=== PATIENT | male | born 1930 | race Caucasian/White ===

== ENCOUNTER 2017-10-21 19:25 | Inpatient (IN) | payer MEDICARE, BC ==
[~2017-10-21] VITALS: Ht 182.9 cm; Wt 100.0 kg
[2017-10-21] MEDS ORDERED: normal saline 1000ML IV soln IVB ONE ×3 (19:50→20:35)
[2017-10-21 20:37] LABS: BASOPHILS % (AUTO) 0.2 % (0-1); EOSINOPHILS # (AUTO) 0.3 X10'3 (0-0.9); EOSINOPHILS % (AUTO) 3.2 % (0-6); HEMATOCRIT 38.8 % (42.0-52.0); LYMPHOCYTES # (AUTO) 0.9 X10'3 (1.1-4.8); LYMPHOCYTES % (AUTO) 10.3 % (21-51); MEAN CORPUSCULAR HEMOGLOBIN 31.9 PG (27.0-31.0); MEAN CORPUSCULAR HGB CONC 33.5 % (33.0-36.5); MEAN CORPUSCULAR VOLUME 95.1 FL (78-98); MEAN PLATELET VOLUME 8.3 FL (7.4-10.4); MONOCYTES # (AUTO) 0.6 X10'3 (0-0.9); NEUTROPHILS # (AUTO) 7.2 X10'3 (1.8-7.7); NEUTROPHILS % (AUTO) 79.3 % (42-75); PLATELET COUNT 213 X10'3 (140-440); RED BLOOD COUNT 4.08 X10'6 (4.70-6.10); WHITE BLOOD COUNT 9.1 X10'3 (4.5-11.0)
[2017-10-21 20:52] LABS: INR 1.3 INR; PARTIAL THROMBOPLASTIN TIME 35 SECONDS (22-32); PROTHROMBIN TIME 13.1 SECONDS (9.0-12.0)
[2017-10-21 20:55] LABS: ALANINE AMINOTRANSFERASE 32 U/L (12-78); ALBUMIN 3.2 G/DL (3.4-5.0); ALBUMIN/GLOBULIN RATIO 0.8 (1.1-1.5); ALKALINE PHOSPHATASE 125 IU/L (46-116); ANION GAP 13 (8-16); ASPARTATE AMINO TRANSFERASE 26 U/L (10-37); BILIRUBIN,TOTAL 0.6 MG/DL (0.1-1.0); BLOOD UREA NITROGEN 29 MG/DL (7-18); BUN/CREATININE RATIO 13.8 (5.4-32.0); CALCIUM 8.6 MG/DL (8.5-10.1); CHLORIDE 104 MMOL/L (99-107); GLUCOSE 177 MG/DL (70-104); POTASSIUM 4.4 MMOL/L (3.5-5.1); SODIUM 142 MMOL/L (135-145); TOTAL CARBON DIOXIDE 24.8 MMOL/L (24-32); TOTAL PROTEIN 7.2 G/DL (6.4-8.2); eGFR 30 ML/MIN
[2017-10-21 21:05] LABS: MAGNESIUM 2.2 MG/DL (1.5-2.4)
[2017-10-21 21:07] LABS: CLARITY,URINE SLIGHTLY CLOUDY (Clear); COLOR,URINE STRAW (Yellow); GLUCOSE, URINE NEGATIVE (Neg); KETONES,URINE NEGATIVE (Neg); LEUKOCYTE ESTERASE ,URINE LARGE (Neg); NITRITES, URINE NEGATIVE (Neg); OCCULT BLOOD,URINE SMALL (Neg); PH,URINE 6.5 (4.8-8.0); PROTEIN,URINE NEGATIVE (Neg); UROBILINOGEN,URINE 0.2 E.U/dL (0.2-1.0)
[2017-10-21 21:08] LABS: UA COLLECTION TYPE CLN CATCH MIDSTREAM
[2017-10-21 21:16] LABS: WBC,URINE TNTC /HPF (0-4)
[2017-10-21 21:17] LABS: BACTERIA,URINE 1+ /HPF (Neg); MUCUS STRANDS NONE SEEN /LPF (Neg); SQUAMOUS EPITHELIAL CELL,UR NONE SEEN /LPF (FEW)
[2017-10-21] MEDS ORDERED: CefTRIAXone 2gm/D5W 50ml ADVTG 50 ML IV ONE (21:55)
[2017-10-21] MEDS ORDERED: METO-539 PO (22:22)
[2017-10-21] MEDS ORDERED: FURO-149 PO (22:22)
[2017-10-21] MEDS ORDERED: LISI-600 PO (22:22)
[2017-10-21] MEDS ORDERED: DIGO125T4 PO (22:22)
[2017-10-21] MEDS ORDERED: DABI75CA3 PO (22:22)
[2017-10-21] MEDS ORDERED: PRAV40TA3 PO (22:23)
[2017-10-21] MEDS ORDERED: magnesium hydroxide 30ml (MOM) UD suspension PO PRN (23:10)
[2017-10-21] MEDS ORDERED: ondansetron/PF 4mg/2ml inj IV PRN (23:10)
[2017-10-21] MEDS ORDERED: mag hydrox/Alum hydrox/simeth 30ml oral suspension PO PRN (23:10)
[2017-10-22 02:10] VITALS: BP 153/71
[2017-10-22] MEDS: amLODIPine 5mg tablet PO SCH ×2 (03:30→08:38)
[2017-10-22 07:47] VITALS: BP 142/69
[2017-10-22] MEDS: digoxin 125mcg (0.125mg) tablet PO SCH (08:00)
[2017-10-22] MEDS: metoprolol succinate 25mg (24-HOUR) SR. Tablet PO SCH ×2 (08:00→22:09)
[2017-10-22] MEDS: lactobacillus rhamnosus 10,000 MMU CELLS/CAPSULE PO SCH ×2 (08:35→17:46)
[2017-10-22] MEDS: citalopram 20mg tablet PO SCH (08:36)
[2017-10-22] MEDS: pravastatin 40mg tablet PO SCH (08:38)
[2017-10-22] MEDS: normal saline 1000ml 1,000 ML IV SCH ×3 (09:06→23:30)
[2017-10-22] MEDS: CefTRIAXone 2gm/D5W 50ml ADVTG 50 ML IV SCH (09:37)
[2017-10-22 09:51] LABS: BASOPHILS # (AUTO) 0.1 X10'3 (0-0.2); BASOPHILS % (AUTO) 1.1 % (0-1); EOSINOPHILS # (AUTO) 0.4 X10'3 (0-0.9); EOSINOPHILS % (AUTO) 5.3 % (0-6); HEMATOCRIT 36.2 % (42.0-52.0); HEMOGLOBIN 12.3 g/dl (14.0-17.9); LYMPHOCYTES # (AUTO) 1.6 X10'3 (1.1-4.8); LYMPHOCYTES % (AUTO) 22.3 % (21-51); MEAN CORPUSCULAR HEMOGLOBIN 32.1 PG (27.0-31.0); MEAN CORPUSCULAR HGB CONC 33.9 % (33.0-36.5); MEAN CORPUSCULAR VOLUME 94.7 FL (78-98); MEAN PLATELET VOLUME 8.7 FL (7.4-10.4); MONOCYTES # (AUTO) 0.8 X10'3 (0-0.9); MONOCYTES % (AUTO) 11.7 % (2-12); NEUTROPHILS # (AUTO) 4.3 X10'3 (1.8-7.7); NEUTROPHILS % (AUTO) 59.6 % (42-75); PLATELET COUNT 238 X10'3 (140-440); RED BLOOD COUNT 3.82 X10'6 (4.70-6.10); RED CELL DISTRIBUTION WIDTH 14.6 % (11.5-14.5); WHITE BLOOD COUNT 7.2 X10'3 (4.5-11.0)
[2017-10-22 11:11] VITALS: BP 119/60
[2017-10-22 11:41] LABS: ALANINE AMINOTRANSFERASE 26 U/L (12-78); ALBUMIN/GLOBULIN RATIO 0.8 (1.1-1.5); ALKALINE PHOSPHATASE 116 IU/L (46-116); ANION GAP 6 (8-16); ASPARTATE AMINO TRANSFERASE 27 U/L (10-37); BILIRUBIN,TOTAL 0.3 MG/DL (0.1-1.0); BLOOD UREA NITROGEN 26 MG/DL (7-18); BUN/CREATININE RATIO 18.1 (5.4-32.0); CALCIUM 8.4 MG/DL (8.5-10.1); CHLORIDE 110 MMOL/L (99-107); CREATININE 1.44 MG/DL (0.60-1.10); GLUCOSE 83 MG/DL (70-104); SODIUM 144 MMOL/L (135-145); TOTAL CARBON DIOXIDE 27.6 MMOL/L (24-32); TOTAL PROTEIN 6.9 G/DL (6.4-8.2); eGFR 46 ML/MIN
[2017-10-22] MEDS ORDERED: enoxaparin 30mg/0.3ml syringe SUBCUT ONE (13:25)
[2017-10-22 19:00] VITALS: BP 118/75
[2017-10-23] VITALS: BP 156/78
[2017-10-23] MEDS: normal saline 1000ml 1,000 ML IV SCH ×3 (05:06→23:34)
[2017-10-23 05:47] LABS: BASOPHILS % (AUTO) 0.6 % (0-1); EOSINOPHILS # (AUTO) 0.6 X10'3 (0-0.9); EOSINOPHILS % (AUTO) 9.4 % (0-6); HEMATOCRIT 35.6 % (42.0-52.0); HEMOGLOBIN 11.8 g/dl (14.0-17.9); LYMPHOCYTES # (AUTO) 1.5 X10'3 (1.1-4.8); LYMPHOCYTES % (AUTO) 25.8 % (21-51); MEAN CORPUSCULAR HEMOGLOBIN 31.6 PG (27.0-31.0); MEAN CORPUSCULAR HGB CONC 33.1 % (33.0-36.5); MEAN CORPUSCULAR VOLUME 95.5 FL (78-98); MONOCYTES # (AUTO) 0.7 X10'3 (0-0.9); MONOCYTES % (AUTO) 11.9 % (2-12); NEUTROPHILS # (AUTO) 3.1 X10'3 (1.8-7.7); NEUTROPHILS % (AUTO) 52.3 % (42-75); PLATELET COUNT 200 X10'3 (140-440); RED BLOOD COUNT 3.72 X10'6 (4.70-6.10); RED CELL DISTRIBUTION WIDTH 14.6 % (11.5-14.5)
[2017-10-23 06:01] LABS: ALBUMIN 2.9 G/DL (3.4-5.0); ANION GAP 8 (8-16); BLOOD UREA NITROGEN 25 MG/DL (7-18); BUN/CREATININE RATIO 21.2 (5.4-32.0); CALCIUM 8.3 MG/DL (8.5-10.1); CHLORIDE 109 MMOL/L (99-107); CREATININE 1.18 MG/DL (0.60-1.10); GLUCOSE 89 MG/DL (70-104); POTASSIUM 4.5 MMOL/L (3.5-5.1); SODIUM 142 MMOL/L (135-145); eGFR 58 ML/MIN
[2017-10-23] MEDS: digoxin 125mcg (0.125mg) tablet PO SCH (07:17)
[2017-10-23] MEDS: amLODIPine 5mg tablet PO SCH (07:28)
[2017-10-23] MEDS: metoprolol succinate 25mg (24-HOUR) SR. Tablet PO SCH (07:29)
[2017-10-23] MEDS: citalopram 20mg tablet PO SCH (07:29)
[2017-10-23] MEDS: pravastatin 40mg tablet PO SCH (07:29)
[2017-10-23] MEDS: LACTOBACILLUS RHAMNOSUS GG 15 billion unit sprinkle caps PO SCH (07:30)
[2017-10-23 08:00] VITALS: BP 137/67
[2017-10-23] MEDS: CefTRIAXone 2gm/D5W 50ml ADVTG 50 ML IV SCH (08:00)
[2017-10-23] MEDS ORDERED: metoprolol tartrate 12.5mg (1/2 tablet) PO ONE (08:30)
[2017-10-23 11:00] VITALS: BP 126/59
[2017-10-23 20:00] VITALS: BP 117/64
[2017-10-23] MEDS ORDERED: metoprolol tartrate 12.5mg (1/2 tablet) PO SCH (20:00)
[2017-10-24] VITALS: BP 146/82
[2017-10-24 05:05] LABS: BASOPHILS % (AUTO) 0.5 % (0-1); EOSINOPHILS # (AUTO) 0.4 X10'3 (0-0.9); EOSINOPHILS % (AUTO) 5.1 % (0-6); HEMATOCRIT 35.8 % (42.0-52.0); HEMOGLOBIN 11.9 g/dl (14.0-17.9); LYMPHOCYTES # (AUTO) 1.6 X10'3 (1.1-4.8); LYMPHOCYTES % (AUTO) 22.3 % (21-51); MEAN CORPUSCULAR HEMOGLOBIN 31.8 PG (27.0-31.0); MEAN CORPUSCULAR HGB CONC 33.3 % (33.0-36.5); MEAN CORPUSCULAR VOLUME 95.7 FL (78-98); MEAN PLATELET VOLUME 8.8 FL (7.4-10.4); MONOCYTES # (AUTO) 0.8 X10'3 (0-0.9); MONOCYTES % (AUTO) 10.7 % (2-12); NEUTROPHILS # (AUTO) 4.4 X10'3 (1.8-7.7); NEUTROPHILS % (AUTO) 61.4 % (42-75); PLATELET COUNT 201 X10'3 (140-440); RED BLOOD COUNT 3.74 X10'6 (4.70-6.10); RED CELL DISTRIBUTION WIDTH 14.3 % (11.5-14.5); WHITE BLOOD COUNT 7.2 X10'3 (4.5-11.0)
[2017-10-24 05:16] LABS: ANION GAP 6 (8-16); BLOOD UREA NITROGEN 24 MG/DL (7-18); CALCIUM 8.3 MG/DL (8.5-10.1); CHLORIDE 109 MMOL/L (99-107); CREATININE 1.09 MG/DL (0.60-1.10); GLUCOSE 96 MG/DL (70-104); POTASSIUM 4.4 MMOL/L (3.5-5.1); SODIUM 141 MMOL/L (135-145); TOTAL CARBON DIOXIDE 25.7 MMOL/L (24-32); eGFR 64 ML/MIN
[2017-10-24 06:40] VITALS: BP 150/71
[2017-10-24] MEDS: CefTRIAXone 2gm/D5W 50ml ADVTG 50 ML IV SCH (08:00)
[2017-10-24] MEDS: amLODIPine 2.5mg tablet PO SCH (08:51)
[2017-10-24] MEDS: citalopram 20mg tablet PO SCH (08:51)
[2017-10-24] MEDS: pravastatin 40mg tablet PO SCH (08:52)
[2017-10-24] MEDS: LACTOBACILLUS RHAMNOSUS GG 15 billion unit sprinkle caps PO SCH (08:53)
[2017-10-24] MEDS: normal saline 1000ml 1,000 ML IV SCH ×2 (11:06→21:02)
[2017-10-24 11:15] VITALS: BP 142/75
[2017-10-24 20:00] VITALS: BP 154/73
[2017-10-25] VITALS: BP 131/75
[2017-10-25 05:52] LABS: BASOPHILS % (AUTO) 0.5 % (0-1); EOSINOPHILS # (AUTO) 0.5 X10'3 (0-0.9); EOSINOPHILS % (AUTO) 5.4 % (0-6); HEMATOCRIT 36.5 % (42.0-52.0); HEMOGLOBIN 12.3 g/dl (14.0-17.9); LYMPHOCYTES # (AUTO) 1.5 X10'3 (1.1-4.8); LYMPHOCYTES % (AUTO) 16.1 % (21-51); MEAN CORPUSCULAR HGB CONC 33.5 % (33.0-36.5); MEAN CORPUSCULAR VOLUME 95.6 FL (78-98); MEAN PLATELET VOLUME 8.9 FL (7.4-10.4); MONOCYTES % (AUTO) 10.8 % (2-12); NEUTROPHILS # (AUTO) 6.1 X10'3 (1.8-7.7); NEUTROPHILS % (AUTO) 67.2 % (42-75); PLATELET COUNT 197 X10'3 (140-440); RED BLOOD COUNT 3.82 X10'6 (4.70-6.10); RED CELL DISTRIBUTION WIDTH 14.4 % (11.5-14.5); WHITE BLOOD COUNT 9.1 X10'3 (4.5-11.0)
[2017-10-25 06:17] LABS: ANION GAP 5 (8-16); BLOOD UREA NITROGEN 14 MG/DL (7-18); BUN/CREATININE RATIO 15.1 (5.4-32.0); CALCIUM 8.5 MG/DL (8.5-10.1); CHLORIDE 108 MMOL/L (99-107); CREATININE 0.93 MG/DL (0.60-1.10); GLUCOSE 91 MG/DL (70-104); POTASSIUM 4.2 MMOL/L (3.5-5.1); SODIUM 140 MMOL/L (135-145); TOTAL CARBON DIOXIDE 26.9 MMOL/L (24-32); eGFR 77 ML/MIN
[2017-10-25 07:11] VITALS: BP 142/87
[2017-10-25] MEDS: CefTRIAXone 2gm/D5W 50ml ADVTG 50 ML IV SCH (08:00)
[2017-10-25] MEDS ORDERED: metoprolol tartrate 12.5mg (1/2 tablet) PO SCH (08:00)
[2017-10-25] MEDS: citalopram 20mg tablet PO SCH (08:09)
[2017-10-25] MEDS: LACTOBACILLUS RHAMNOSUS GG 15 billion unit sprinkle caps PO SCH (08:09)
[2017-10-25] MEDS: amLODIPine 2.5mg tablet PO SCH (08:10)
[2017-10-25] MEDS: pravastatin 40mg tablet PO SCH (08:10)
[2017-10-25] MEDS ORDERED: CITA20TA11 PO (10:45)
[2017-10-25 11:30] VITALS: BP 147/79
== END 2017-10-25 15:46 | DRG 871 ==
LOC: ER 19:25 → ED HOLD 23:06 → SUR 3N 10-22 02:15
PROVIDERS: ADMIT Internal Medicine; ATTEND Internal Medicine
DX: A41.9 Sepsis, unspecified organism (principal); G93.40 Encephalopathy, unspecified; N17.9 Acute kidney failure, unspecified; I48.91 Unspecified atrial fibrillation; E86.0 Dehydration; F03.90 Unspecified dementia, unspecified severity, without behavioral disturbance, psychotic disturbance, mood disturbance, and anxiety; E78.5 Hyperlipidemia, unspecified; E78.00 Pure hypercholesterolemia, unspecified; F32.9 Major depressive disorder, single episode, unspecified; N39.0 Urinary tract infection, site not specified; B96.4 Proteus (mirabilis) (morganii) as the cause of diseases classified elsewhere; I10 Essential (primary) hypertension; Z66 Do not resuscitate; Z79.01 Long term (current) use of anticoagulants; Z88.5 Allergy status to narcotic agent; Z86.73 Personal history of transient ischemic attack (TIA), and cerebral infarction without residual deficits
CPT/HCPCS: 36415; 71045; 80048; 80053; 80162; 81001; 83605; 83735; 83880; 84145; 84484; 85025; 85610; 85730; 87040; 87070; 87077; 87088; 87186; 93005; 93306; 96361; 96365; 97116; 97161; 99285; A4353; A6212; A6213; A6258; A6449; J0696; J1650; J7030

== ENCOUNTER 2018-04-07 13:04 | Inpatient (IN) | payer MEDICARE, BC ==
[~2018-04-07] VITALS: Ht 188 cm; Wt 106.4 kg
[~2018-04-07 13:04] MED LIST: CITA-278 PO; DABI75CA3 PO; DIGO-28 PO; FURO-149 PO; LISI-600 PO; PRAV40TA3 PO
[2018-04-07] MEDS ORDERED: BUPIVAcaine 0.5% inj/PF 30 ml vial IJ ONE ×2 (14:05)
[2018-04-07] MEDS ORDERED: bupivacaine (with preservative) 5 mg/ml inj. 50ml SQ ONE (14:25)
[2018-04-07 14:38] LABS: BASOPHILS % (AUTO) 0.5 % (0-1); EOSINOPHILS # (AUTO) 0.1 X10'3 (0-0.9); EOSINOPHILS % (AUTO) 1.1 % (0-6); HEMATOCRIT 36.7 % (42.0-52.0); HEMOGLOBIN 12.5 g/dl (14.0-17.9); LYMPHOCYTES # (AUTO) 1.1 X10'3 (1.1-4.8); LYMPHOCYTES % (AUTO) 10.5 % (21-51); MEAN CORPUSCULAR HEMOGLOBIN 32.7 PG (27.0-31.0); MEAN CORPUSCULAR HGB CONC 34.2 % (33.0-36.5); MEAN CORPUSCULAR VOLUME 95.6 FL (78-98); MEAN PLATELET VOLUME 8.7 FL (7.4-10.4); MONOCYTES # (AUTO) 1.5 X10'3 (0-0.9); MONOCYTES % (AUTO) 13.8 % (2-12); NEUTROPHILS % (AUTO) 74.1 % (42-75); PLATELET COUNT 191 X10'3 (140-440); RED BLOOD COUNT 3.84 X10'6 (4.70-6.10); RED CELL DISTRIBUTION WIDTH 14.7 % (11.5-14.5); WHITE BLOOD COUNT 10.9 X10'3 (4.5-11.0)
[2018-04-07 15:01] LABS: ALANINE AMINOTRANSFERASE 34 U/L (12-78); ALBUMIN/GLOBULIN RATIO 0.7 (1.1-1.5); ALKALINE PHOSPHATASE 131 IU/L (46-116); ANION GAP 10 (8-16); ASPARTATE AMINO TRANSFERASE 42 U/L (10-37); BLOOD UREA NITROGEN 34 MG/DL (7-18); BUN/CREATININE RATIO 22.7 (5.4-32.0); CALCIUM 9.1 MG/DL (8.5-10.1); CHLORIDE 109 MMOL/L (99-107); GLUCOSE 116 MG/DL (70-104); MAGNESIUM 2.1 MG/DL (1.5-2.4); POTASSIUM 4.3 MMOL/L (3.5-5.1); SODIUM 146 MMOL/L (135-145); TOTAL CARBON DIOXIDE 26.8 MMOL/L (24-32); TOTAL PROTEIN 7.4 G/DL (6.4-8.2); eGFR 44 ML/MIN
[2018-04-07] MEDS ORDERED: piperacillin/tazo 3.375gm/50ml 50 ML IV ONE (15:35)
[2018-04-07] MEDS ORDERED: vancomycin/NS 1 GM ADD-VANTAGE 250 ML IV ONE (15:35)
[2018-04-07 16:36] LABS: GLUCOSE,SYNOVIAL FLUID 53 MG/DL; TOTAL PROTEIN,SYNOVIAL FLUID 4.3 GM/DL
[2018-04-07 17:07] LABS: APPEARANCE,SYNOVIAL FLUID CLOUDY; COLOR,SYNOVIAL FLUID YELLOW; SYN WBC 49000 /CU MM (0-200)
[2018-04-07 17:08] LABS: LYMPHOCYTES,SYNOVIAL FLUID 10 % (0-75); MONOCYTES,SYNOVIAL FLUID 8 % (0-0); NEUTROPHILS,SYNOVIAL FLUID 82 % (0-25); SYN RBC 1900 /CU MM (0); SYNOVIAL FLUID CRYSTALS QT NO CRYSTALS SEEN
[2018-04-07] MEDS ORDERED: ceFAZolin 1GM/D5W- ADD-VANTAGE 50 ML IV ONE (17:40)
[2018-04-07] MEDS ORDERED: mag hydrox/Alum hydrox/simeth 30ml oral suspension PO PRN (19:25)
[2018-04-07] MEDS ORDERED: ondansetron/PF 4mg/2ml inj IV PRN (19:25)
[2018-04-07] MEDS: sodium chloride 0.45% 1,000 ML IV SCH (19:33)
[2018-04-07] MEDS ORDERED: CARB-86 PO (19:52)
[2018-04-07] MEDS ORDERED: AMLO2.5T2 PO (19:54)
[2018-04-07] MEDS ORDERED: POTA10CA44 PO (20:00)
[2018-04-07] MEDS ORDERED: FURO-150 PO (20:00)
[2018-04-07] MEDS ORDERED: DABI75CA3 PO (20:00)
[2018-04-07] MEDS ORDERED: DOXY100C2 PO (20:00)
[2018-04-07] MEDS ORDERED: CITA40TA22 PO (20:00)
[2018-04-07] MEDS ORDERED: LISI40TA4 PO (20:00)
[2018-04-07] MEDS ORDERED: PRAV40TA3 PO (20:00)
[2018-04-07] MEDS ORDERED: QUET25TA PO (20:00)
[2018-04-07 21:00] VITALS: BP 160/73
[2018-04-07] MEDS: QUEtiapine 25mg tablet PO SCH (23:33)
[2018-04-08] MEDS: acetaminophen 325mg tablet PO PRN ×2 (01:04→23:49)
[2018-04-08] MEDS: morphine 4 MG/ML inj SYRINge IV PRN (01:50)
[2018-04-08 02:48] VITALS: BP 114/62
[2018-04-08 04:24] LABS: BASOPHILS % (AUTO) 0.4 % (0-1); EOSINOPHILS % (AUTO) 0.3 % (0-6); HEMATOCRIT 32.6 % (42.0-52.0); LYMPHOCYTES # (AUTO) 1.7 X10'3 (1.1-4.8); LYMPHOCYTES % (AUTO) 18.1 % (21-51); MEAN CORPUSCULAR HEMOGLOBIN 32.7 PG (27.0-31.0); MEAN CORPUSCULAR HGB CONC 33.6 % (33.0-36.5); MEAN CORPUSCULAR VOLUME 97.1 FL (78-98); MONOCYTES # (AUTO) 1.4 X10'3 (0-0.9); MONOCYTES % (AUTO) 15.4 % (2-12); NEUTROPHILS # (AUTO) 6.2 X10'3 (1.8-7.7); NEUTROPHILS % (AUTO) 65.8 % (42-75); PLATELET COUNT 185 X10'3 (140-440); RED BLOOD COUNT 3.36 X10'6 (4.70-6.10); RED CELL DISTRIBUTION WIDTH 14.1 % (11.5-14.5); WHITE BLOOD COUNT 9.4 X10'3 (4.5-11.0)
[2018-04-08 04:36] LABS: ALANINE AMINOTRANSFERASE 49 U/L (12-78); ALBUMIN 2.5 G/DL (3.4-5.0); ALBUMIN/GLOBULIN RATIO 0.6 (1.1-1.5); ALKALINE PHOSPHATASE 121 IU/L (46-116); ANION GAP 7 (8-16); ASPARTATE AMINO TRANSFERASE 43 U/L (10-37); BILIRUBIN,TOTAL 0.9 MG/DL (0.1-1.0); BLOOD UREA NITROGEN 31 MG/DL (7-18); BUN/CREATININE RATIO 21.8 (5.4-32.0); CALCIUM 8.2 MG/DL (8.5-10.1); CHLORIDE 109 MMOL/L (99-107); CREATININE 1.42 MG/DL (0.60-1.10); GLUCOSE 112 MG/DL (70-104); POTASSIUM 3.6 MMOL/L (3.5-5.1); SODIUM 143 MMOL/L (135-145); TOTAL CARBON DIOXIDE 27.4 MMOL/L (24-32); TOTAL PROTEIN 6.4 G/DL (6.4-8.2); eGFR 47 ML/MIN
[2018-04-08] MEDS: sodium chloride 0.45% 1,000 ML IV SCH ×2 (04:57→17:45)
[2018-04-08 05:00] VITALS: BP 99/54
[2018-04-08] MEDS: lisinopril 20mg tablet PO SCH (09:46)
[2018-04-08] MEDS: QUEtiapine 25mg tablet PO SCH ×2 (09:46→20:43)
[2018-04-08] MEDS: citalopram 20mg tablet PO SCH (09:47)
[2018-04-08] MEDS: CefTRIAXone 2gm/D5W 50ml 50 ML IV SCH (09:47)
[2018-04-08] MEDS: carbidopa/levodopa 10/100mg tab PO SCH ×3 (09:47→23:49)
[2018-04-08 09:53] VITALS: BP 138/78
[2018-04-08] MEDS: amLODIPine 2.5mg tablet PO SCH (09:59)
[2018-04-08 10:00] VITALS: BP 109/60
[2018-04-08 18:43] VITALS: BP 150/83
[2018-04-08] MEDS: lactobacillus rhamnosus 10,000 MMU CELLS/CAPSULE PO SCH (20:43)
[2018-04-08] MEDS: atorvastatin 10mg tablet PO SCH (20:43)
[2018-04-08] MEDS ORDERED: QUEtiapine 25mg tablet PO SCH (21:00)
[2018-04-08 22:45] VITALS: BP 116/71
[2018-04-09 04:41] LABS: BASOPHILS % (AUTO) 0.3 % (0-1); EOSINOPHILS # (AUTO) 0.3 X10'3 (0-0.9); EOSINOPHILS % (AUTO) 3.2 % (0-6); HEMATOCRIT 31.1 % (42.0-52.0); HEMOGLOBIN 10.6 g/dl (14.0-17.9); LYMPHOCYTES # (AUTO) 1.9 X10'3 (1.1-4.8); LYMPHOCYTES % (AUTO) 22.3 % (21-51); MEAN CORPUSCULAR HEMOGLOBIN 32.7 PG (27.0-31.0); MEAN CORPUSCULAR VOLUME 96.3 FL (78-98); MEAN PLATELET VOLUME 8.8 FL (7.4-10.4); MONOCYTES # (AUTO) 1.2 X10'3 (0-0.9); MONOCYTES % (AUTO) 14.7 % (2-12); NEUTROPHILS # (AUTO) 5.1 X10'3 (1.8-7.7); NEUTROPHILS % (AUTO) 59.5 % (42-75); PLATELET COUNT 177 X10'3 (140-440); RED BLOOD COUNT 3.23 X10'6 (4.70-6.10); WHITE BLOOD COUNT 8.5 X10'3 (4.5-11.0)
[2018-04-09 05:06] LABS: ALANINE AMINOTRANSFERASE 19 U/L (12-78); ALBUMIN 2.3 G/DL (3.4-5.0); ALBUMIN/GLOBULIN RATIO 0.6 (1.1-1.5); ALKALINE PHOSPHATASE 140 IU/L (46-116); ANION GAP 7 (8-16); ASPARTATE AMINO TRANSFERASE 91 U/L (10-37); BILIRUBIN,TOTAL 1.1 MG/DL (0.1-1.0); BLOOD UREA NITROGEN 30 MG/DL (7-18); BUN/CREATININE RATIO 22.6 (5.4-32.0); CALCIUM 7.7 MG/DL (8.5-10.1); CHLORIDE 104 MMOL/L (99-107); CREATININE 1.33 MG/DL (0.60-1.10); GLUCOSE 87 MG/DL (70-104); POTASSIUM 3.7 MMOL/L (3.5-5.1); SODIUM 138 MMOL/L (135-145); TOTAL CARBON DIOXIDE 27.5 MMOL/L (24-32); TOTAL PROTEIN 6.2 G/DL (6.4-8.2); eGFR 51 ML/MIN
[2018-04-09 06:00] VITALS: BP 138/57
[2018-04-09] MEDS: CefTRIAXone 2gm/D5W 50ml 50 ML IV SCH (08:12)
[2018-04-09] MEDS: citalopram 20mg tablet PO SCH (08:12)
[2018-04-09] MEDS: lisinopril 20mg tablet PO SCH (08:12)
[2018-04-09] MEDS: carbidopa/levodopa 10/100mg tab PO SCH ×3 (08:13→23:22)
[2018-04-09] MEDS: amLODIPine 2.5mg tablet PO SCH (08:13)
[2018-04-09] MEDS: lactobacillus rhamnosus 10,000 MMU CELLS/CAPSULE PO SCH ×2 (08:13→20:50)
[2018-04-09] MEDS: QUEtiapine 25mg tablet PO SCH ×2 (08:13→20:50)
[2018-04-09] MEDS: morphine 4 MG/ML inj SYRINge IV PRN ×3 (08:24→23:45)
[2018-04-09 10:00] VITALS: BP 121/80
[2018-04-09] MEDS: sodium chloride 0.45% 1,000 ML IV SCH ×2 (11:24→11:52)
[2018-04-09] MEDS ORDERED: ringers solution, lacted 1,000 ML IV ONE (16:26)
[2018-04-09 18:15] VITALS: BP 126/47
[2018-04-09] MEDS: atorvastatin 10mg tablet PO SCH (20:49)
[2018-04-09] MEDS: heparin, porcine 5000 units/ml vial SQ SCH (20:50)
[2018-04-09] MEDS: LORazepam 2 mg/ml vial IV PRN (20:50)
[2018-04-09 22:10] VITALS: BP 133/51
[2018-04-10] VITALS (17 sets, daily range): BP systolic 94–140; BP diastolic 46–73
[2018-04-10] MEDS: LORazepam 2 mg/ml vial IV PRN ×2 (02:12→20:06)
[2018-04-10] MEDS: morphine 4 MG/ML inj SYRINge IV PRN ×4 (03:16→22:48)
[2018-04-10] MEDS: QUEtiapine 25mg tablet PO SCH ×2 (08:00→20:23)
[2018-04-10] MEDS: lisinopril 20mg tablet PO SCH (08:00)
[2018-04-10] MEDS: amLODIPine 2.5mg tablet PO SCH (08:00)
[2018-04-10] MEDS: heparin, porcine 5000 units/ml vial SQ SCH ×2 (08:00→20:27)
[2018-04-10] MEDS: citalopram 20mg tablet PO SCH (08:00)
[2018-04-10] MEDS: lactobacillus rhamnosus 10,000 MMU CELLS/CAPSULE PO SCH ×2 (08:00→20:23)
[2018-04-10] MEDS: carbidopa/levodopa 10/100mg tab PO SCH ×3 (08:00→23:46)
[2018-04-10] MEDS: sodium chloride 0.45% 1,000 ML IV SCH (08:39)
[2018-04-10] MEDS: CefTRIAXone 2gm/D5W 50ml 50 ML IV SCH (08:40)
[2018-04-10] MEDS ORDERED: vancomycin 1,000mg inj ONE ×2 (12:10→13:00)
[2018-04-10] MEDS ORDERED: ketamine 50mg/5ml syringe ONE (12:45)
[2018-04-10] MEDS ORDERED: tetracaine 1% (10mg/ml) pres. free inj. ONE (12:45)
[2018-04-10] MEDS ORDERED: BUPIVAcaine/PF 7.5mg/ml (0.75%) 10ml vial ONE (12:45)
[2018-04-10] MEDS ORDERED: MIDAZolam 1mg/ml 10ml vial ONE (12:47)
[2018-04-10] MEDS ORDERED: morphine 10mg/ml inj. ONE (12:47)
[2018-04-10] MEDS ORDERED: tobramycin sulfate 1.2gm vial IJ ONE (13:05)
[2018-04-10] MEDS ORDERED: phenylephrine 10mg/ml inj. ONE (13:14)
[2018-04-10] MEDS ORDERED: ePHEDrine 50MG/ML INJ. ONE ×2 (13:18→13:51)
[2018-04-10] MEDS ORDERED: albumin (Human) 5% 250ml 250 ML IV ONE ×2 (13:24)
[2018-04-10] MEDS ORDERED: ringers solution, lacted 1,000 ML IV SCH (13:47)
[2018-04-10] MEDS ORDERED: fentaNYL/PF 50MCG/1 ML 2ML syringe IV PRN ×2 (13:50)
[2018-04-10] MEDS ORDERED: morphine 4 MG/ML inj SYRINge IV PRN ×2 (13:50)
[2018-04-10] MEDS ORDERED: ePHEDrine 50MG/ML INJ. IV ONE (13:50)
[2018-04-10] MEDS ORDERED: ondansetron/PF 4mg/2ml inj IV PRN (13:50)
[2018-04-10 17:35] LABS: BASOPHILS # (AUTO) 0.1 X10'3 (0-0.2); BASOPHILS % (AUTO) 0.7 % (0-1); EOSINOPHILS # (AUTO) 0.5 X10'3 (0-0.9); EOSINOPHILS % (AUTO) 5.1 % (0-6); HEMATOCRIT 31.4 % (42.0-52.0); HEMOGLOBIN 10.4 g/dl (14.0-17.9); LYMPHOCYTES # (AUTO) 1.5 X10'3 (1.1-4.8); LYMPHOCYTES % (AUTO) 15.7 % (21-51); MEAN CORPUSCULAR HEMOGLOBIN 32.2 PG (27.0-31.0); MEAN CORPUSCULAR HGB CONC 33.2 % (33.0-36.5); MEAN PLATELET VOLUME 9.1 FL (7.4-10.4); MONOCYTES # (AUTO) 1.4 X10'3 (0-0.9); MONOCYTES % (AUTO) 13.9 % (2-12); NEUTROPHILS # (AUTO) 6.4 X10'3 (1.8-7.7); NEUTROPHILS % (AUTO) 64.6 % (42-75); PLATELET COUNT 203 X10'3 (140-440); RED BLOOD COUNT 3.23 X10'6 (4.70-6.10); RED CELL DISTRIBUTION WIDTH 14.7 % (11.5-14.5); WHITE BLOOD COUNT 9.8 X10'3 (4.5-11.0)
[2018-04-10 17:50] LABS: ALANINE AMINOTRANSFERASE 52 U/L (12-78); ALBUMIN 2.6 G/DL (3.4-5.0); ALBUMIN/GLOBULIN RATIO 0.7 (1.1-1.5); ALKALINE PHOSPHATASE 146 IU/L (46-116); ANION GAP 9 (8-16); ASPARTATE AMINO TRANSFERASE 65 U/L (10-37); BLOOD UREA NITROGEN 31 MG/DL (7-18); BUN/CREATININE RATIO 22.6 (5.4-32.0); CALCIUM 8.4 MG/DL (8.5-10.1); CHLORIDE 105 MMOL/L (99-107); CREATININE 1.37 MG/DL (0.60-1.10); GLUCOSE 97 MG/DL (70-104); SODIUM 138 MMOL/L (135-145); TOTAL CARBON DIOXIDE 24.1 MMOL/L (24-32); TOTAL PROTEIN 6.4 G/DL (6.4-8.2); eGFR 49 ML/MIN
[2018-04-10] MEDS: albuterol 2.5 MG/3 ML nebule NEB PRN (19:23)
[2018-04-10] MEDS: atorvastatin 10mg tablet PO SCH (20:23)
[2018-04-11] MEDS: LORazepam 2 mg/ml vial IV PRN (00:53)
[2018-04-11] MEDS: morphine 4 MG/ML inj SYRINge IV PRN (02:23)
[2018-04-11 02:30] VITALS: BP 134/52
[2018-04-11] MEDS: sodium chloride 0.45% 1,000 ML IV SCH ×2 (02:53→13:31)
[2018-04-11] MEDS ORDERED: morphine 4 MG/ML inj SYRINge IV ONE (04:00)
[2018-04-11 04:34] LABS: BASOPHILS % (AUTO) 0.2 % (0-1); EOSINOPHILS # (AUTO) 0.3 X10'3 (0-0.9); HEMATOCRIT 29.2 % (42.0-52.0); HEMOGLOBIN 9.8 g/dl (14.0-17.9); LYMPHOCYTES # (AUTO) 0.9 X10'3 (1.1-4.8); LYMPHOCYTES % (AUTO) 10.1 % (21-51); MEAN CORPUSCULAR HEMOGLOBIN 32.2 PG (27.0-31.0); MEAN CORPUSCULAR HGB CONC 33.6 % (33.0-36.5); MEAN CORPUSCULAR VOLUME 95.8 FL (78-98); MEAN PLATELET VOLUME 8.3 FL (7.4-10.4); MONOCYTES # (AUTO) 1.2 X10'3 (0-0.9); MONOCYTES % (AUTO) 13.1 % (2-12); NEUTROPHILS # (AUTO) 6.8 X10'3 (1.8-7.7); NEUTROPHILS % (AUTO) 73.6 % (42-75); PLATELET COUNT 189 X10'3 (140-440); RED BLOOD COUNT 3.05 X10'6 (4.70-6.10); RED CELL DISTRIBUTION WIDTH 14.5 % (11.5-14.5); WHITE BLOOD COUNT 9.3 X10'3 (4.5-11.0)
[2018-04-11 04:47] LABS: ALANINE AMINOTRANSFERASE 32 U/L (12-78); ALBUMIN 2.4 G/DL (3.4-5.0); ALBUMIN/GLOBULIN RATIO 0.6 (1.1-1.5); ALKALINE PHOSPHATASE 132 IU/L (46-116); ANION GAP 9 (8-16); ASPARTATE AMINO TRANSFERASE 52 U/L (10-37); BILIRUBIN,TOTAL 0.9 MG/DL (0.1-1.0); BLOOD UREA NITROGEN 28 MG/DL (7-18); BUN/CREATININE RATIO 21.1 (5.4-32.0); CALCIUM 8.6 MG/DL (8.5-10.1); CHLORIDE 106 MMOL/L (99-107); CREATININE 1.33 MG/DL (0.60-1.10); GLUCOSE 107 MG/DL (70-104); POTASSIUM 4.4 MMOL/L (3.5-5.1); SODIUM 139 MMOL/L (135-145); TOTAL CARBON DIOXIDE 24.5 MMOL/L (24-32); TOTAL PROTEIN 6.1 G/DL (6.4-8.2); eGFR 51 ML/MIN
[2018-04-11 05:00] VITALS: BP 115/48
[2018-04-11] MEDS: CefTRIAXone 2gm/D5W 50ml 50 ML IV SCH (08:32)
[2018-04-11] MEDS: heparin, porcine 5000 units/ml vial SQ SCH ×2 (08:47→20:42)
[2018-04-11 10:00] VITALS: BP 133/61
[2018-04-11] MEDS: citalopram 20mg tablet PO SCH (10:45)
[2018-04-11] MEDS: lactobacillus rhamnosus 10,000 MMU CELLS/CAPSULE PO SCH ×2 (10:45→20:40)
[2018-04-11] MEDS: amLODIPine 2.5mg tablet PO SCH (10:46)
[2018-04-11] MEDS: QUEtiapine 25mg tablet PO SCH ×2 (10:47→20:41)
[2018-04-11] MEDS: carbidopa/levodopa 10/100mg tab PO SCH ×3 (10:48→23:58)
[2018-04-11] MEDS: lisinopril 20mg tablet PO SCH (10:48)
[2018-04-11] MEDS: oxyCODONE IR 5mg (immed. release) tablet PO PRN ×2 (10:51→20:41)
[2018-04-11] MEDS ORDERED: VANCOMYCIN LEVEL IV ONE (14:30)
[2018-04-11 16:07] LABS: C-REACTIVE PROTEIN 19.18 MG/DL (0.0-0.5)
[2018-04-11 16:53] LABS: VANCOMYCIN,TROUGH 20.3 UG/ML (6.0-14.0)
[2018-04-11 18:00] VITALS: BP 113/50
[2018-04-11] MEDS: atorvastatin 10mg tablet PO SCH (20:41)
[2018-04-11 22:00] VITALS: BP 95/44
[2018-04-12 05:17] LABS: BASOPHILS % (AUTO) 0.5 % (0-1); EOSINOPHILS # (AUTO) 0.6 X10'3 (0-0.9); EOSINOPHILS % (AUTO) 6.6 % (0-6); HEMATOCRIT 27.9 % (42.0-52.0); HEMOGLOBIN 9.5 g/dl (14.0-17.9); LYMPHOCYTES # (AUTO) 1.3 X10'3 (1.1-4.8); LYMPHOCYTES % (AUTO) 14.3 % (21-51); MEAN CORPUSCULAR HEMOGLOBIN 32.5 PG (27.0-31.0); MEAN CORPUSCULAR HGB CONC 34.1 % (33.0-36.5); MEAN CORPUSCULAR VOLUME 95.4 FL (78-98); MEAN PLATELET VOLUME 8.3 FL (7.4-10.4); MONOCYTES # (AUTO) 1.4 X10'3 (0-0.9); MONOCYTES % (AUTO) 14.8 % (2-12); NEUTROPHILS # (AUTO) 5.9 X10'3 (1.8-7.7); NEUTROPHILS % (AUTO) 63.8 % (42-75); PLATELET COUNT 226 X10'3 (140-440); RED BLOOD COUNT 2.92 X10'6 (4.70-6.10); WHITE BLOOD COUNT 9.3 X10'3 (4.5-11.0)
[2018-04-12 06:00] VITALS: BP 114/54
[2018-04-12 06:31] LABS: ALANINE AMINOTRANSFERASE 32 U/L (12-78); ALBUMIN 2.2 G/DL (3.4-5.0); ALBUMIN/GLOBULIN RATIO 0.6 (1.1-1.5); ALKALINE PHOSPHATASE 149 IU/L (46-116); ANION GAP 9 (8-16); ASPARTATE AMINO TRANSFERASE 45 U/L (10-37); BILIRUBIN,TOTAL 0.9 MG/DL (0.1-1.0); BLOOD UREA NITROGEN 34 MG/DL (7-18); BUN/CREATININE RATIO 19.1 (5.4-32.0); CALCIUM 8.8 MG/DL (8.5-10.1); CHLORIDE 105 MMOL/L (99-107); CREATININE 1.78 MG/DL (0.60-1.10); GLUCOSE 92 MG/DL (70-104); POTASSIUM 4.2 MMOL/L (3.5-5.1); SODIUM 138 MMOL/L (135-145); TOTAL CARBON DIOXIDE 23.6 MMOL/L (24-32); eGFR 36 ML/MIN
[2018-04-12] MEDS: morphine 4 MG/ML inj SYRINge IV PRN (06:52)
[2018-04-12] MEDS: heparin, porcine 5000 units/ml vial SQ SCH ×2 (07:10→20:29)
[2018-04-12] MEDS: amLODIPine 5mg tablet PO SCH (07:14)
[2018-04-12] MEDS: carbidopa/levodopa 10/100mg tab PO SCH ×3 (07:14→23:51)
[2018-04-12] MEDS: lactobacillus rhamnosus 10,000 MMU CELLS/CAPSULE PO SCH ×2 (07:14→20:28)
[2018-04-12] MEDS: QUEtiapine 25mg tablet PO SCH ×2 (07:14→20:31)
[2018-04-12] MEDS: citalopram 20mg tablet PO SCH (07:14)
[2018-04-12] MEDS: lisinopril 20mg tablet PO SCH (08:35)
[2018-04-12] MEDS: sodium chloride 0.45% 1,000 ML IV SCH (09:30)
[2018-04-12 10:00] VITALS: BP 107/56
[2018-04-12] MEDS: oxyCODONE IR 5mg (immed. release) tablet PO PRN ×3 (11:01→23:51)
[2018-04-12] MEDS: vancomycin/NS 1 GM ADD-VANTAGE 250 ML IV SCH (17:00)
[2018-04-12 18:00] VITALS: BP 108/46
[2018-04-12] MEDS ORDERED: vancomycin/NS 1 GM ADD-VANTAGE 250 ML X 1 DOSE IV ONE (19:05)
[2018-04-12] MEDS: atorvastatin 10mg tablet PO SCH (20:31)
[2018-04-12] MEDS: magnesium hydroxide 30ml (MOM) UD suspension PO PRN (20:56)
[2018-04-12 22:06] VITALS: BP 118/46
[2018-04-13] MEDS: oxyCODONE IR 5mg (immed. release) tablet PO PRN ×2 (04:56→19:30)
[2018-04-13] MEDS: sodium chloride 0.45% 1,000 ML IV SCH (04:56)
[2018-04-13 06:00] VITALS: BP 124/52
[2018-04-13] MEDS: carbidopa/levodopa 10/100mg tab PO SCH ×2 (08:00→15:53)
[2018-04-13] MEDS: lisinopril 20mg tablet PO SCH (08:00)
[2018-04-13] MEDS: amLODIPine 5mg tablet PO SCH (08:00)
[2018-04-13] MEDS: QUEtiapine 25mg tablet PO SCH ×2 (08:00→19:28)
[2018-04-13] MEDS: citalopram 20mg tablet PO SCH (08:00)
[2018-04-13] MEDS: lactobacillus rhamnosus 10,000 MMU CELLS/CAPSULE PO SCH ×2 (08:00→19:28)
[2018-04-13] MEDS ORDERED: furosemide 40mg/4ml inj IV STA (08:05)
[2018-04-13] MEDS: heparin, porcine 5000 units/ml vial SQ SCH ×2 (08:21→19:28)
[2018-04-13 10:00] VITALS: BP 99/43
[2018-04-13 14:16] LABS: BASOPHILS % (AUTO) 0.5 % (0-1); EOSINOPHILS # (AUTO) 0.7 X10'3 (0-0.9); EOSINOPHILS % (AUTO) 8.3 % (0-6); HEMATOCRIT 31.6 % (42.0-52.0); HEMOGLOBIN 10.6 g/dl (14.0-17.9); LYMPHOCYTES # (AUTO) 1.2 X10'3 (1.1-4.8); LYMPHOCYTES % (AUTO) 15.2 % (21-51); MEAN CORPUSCULAR HEMOGLOBIN 32.2 PG (27.0-31.0); MEAN CORPUSCULAR HGB CONC 33.4 % (33.0-36.5); MEAN CORPUSCULAR VOLUME 96.4 FL (78-98); MONOCYTES # (AUTO) 1.2 X10'3 (0-0.9); MONOCYTES % (AUTO) 14.4 % (2-12); NEUTROPHILS % (AUTO) 61.6 % (42-75); PLATELET COUNT 260 X10'3 (140-440); RED BLOOD COUNT 3.28 X10'6 (4.70-6.10); RED CELL DISTRIBUTION WIDTH 14.6 % (11.5-14.5); WHITE BLOOD COUNT 8.1 X10'3 (4.5-11.0)
[2018-04-13 14:39] LABS: ALBUMIN 2.3 G/DL (3.4-5.0); ANION GAP 10 (8-16); BLOOD UREA NITROGEN 46 MG/DL (7-18); BUN/CREATININE RATIO 20.9 (5.4-32.0); CALCIUM 9.1 MG/DL (8.5-10.1); CHLORIDE 103 MMOL/L (99-107); GLUCOSE 115 MG/DL (70-104); POTASSIUM 4.3 MMOL/L (3.5-5.1); SODIUM 136 MMOL/L (135-145); TOTAL CARBON DIOXIDE 23.4 MMOL/L (24-32); eGFR 28 ML/MIN
[2018-04-13] MEDS: vancomycin/NS 1 GM ADD-VANTAGE 250 ML IV SCH (16:41)
[2018-04-13 18:00] VITALS: BP 121/47
[2018-04-13] MEDS: albuterol 2.5 MG/3 ML nebule NEB PRN (19:12)
[2018-04-13] MEDS: atorvastatin 10mg tablet PO SCH (19:28)
[2018-04-13] MEDS: morphine 4 MG/ML inj SYRINge IV PRN (21:44)
[2018-04-13 22:00] VITALS: BP 130/54
[2018-04-13] MEDS: LORazepam 2 mg/ml vial IV PRN (23:02)
[2018-04-14] MEDS: carbidopa/levodopa 10/100mg tab PO SCH ×4 (01:13→23:36)
[2018-04-14] MEDS: albuterol 2.5 MG/3 ML nebule NEB PRN (02:12)
[2018-04-14] MEDS: LORazepam 2 mg/ml vial IV PRN (05:22)
[2018-04-14 06:00] VITALS: BP 122/44
[2018-04-14] MEDS: morphine 4 MG/ML inj SYRINge IV PRN ×2 (06:35→11:33)
[2018-04-14] MEDS: citalopram 20mg tablet PO SCH (07:53)
[2018-04-14] MEDS: QUEtiapine 25mg tablet PO SCH ×2 (07:53→19:20)
[2018-04-14] MEDS: lactobacillus rhamnosus 10,000 MMU CELLS/CAPSULE PO SCH ×2 (07:54→19:20)
[2018-04-14] MEDS: lisinopril 20mg tablet PO SCH (07:55)
[2018-04-14] MEDS: amLODIPine 5mg tablet PO SCH (07:55)
[2018-04-14] MEDS: heparin, porcine 5000 units/ml vial SQ SCH ×2 (07:58→19:20)
[2018-04-14] MEDS ORDERED: furosemide 40mg/4ml inj IV SCH (08:00)
[2018-04-14 10:00] VITALS: BP 109/48
[2018-04-14] MEDS: oxyCODONE IR 5mg (immed. release) tablet PO PRN ×2 (16:07→23:36)
[2018-04-14] MEDS: vancomycin/NS 1 GM ADD-VANTAGE 250 ML IV SCH (16:11)
[2018-04-14 18:00] VITALS: BP 128/51
[2018-04-14] MEDS: atorvastatin 10mg tablet PO SCH (19:20)
[2018-04-14 22:00] VITALS: BP 117/57
[2018-04-15 06:00] VITALS: BP 100/46
[2018-04-15 06:19] LABS: BASOPHILS % (AUTO) 0.4 % (0-1); EOSINOPHILS # (AUTO) 0.5 X10'3 (0-0.9); EOSINOPHILS % (AUTO) 7.2 % (0-6); HEMATOCRIT 28.2 % (42.0-52.0); HEMOGLOBIN 9.4 g/dl (14.0-17.9); LYMPHOCYTES # (AUTO) 1.3 X10'3 (1.1-4.8); LYMPHOCYTES % (AUTO) 16.7 % (21-51); MEAN CORPUSCULAR HEMOGLOBIN 32.3 PG (27.0-31.0); MEAN CORPUSCULAR HGB CONC 33.3 % (33.0-36.5); MEAN CORPUSCULAR VOLUME 96.8 FL (78-98); MEAN PLATELET VOLUME 8.3 FL (7.4-10.4); MONOCYTES # (AUTO) 1.1 X10'3 (0-0.9); MONOCYTES % (AUTO) 15.2 % (2-12); NEUTROPHILS # (AUTO) 4.6 X10'3 (1.8-7.7); NEUTROPHILS % (AUTO) 60.5 % (42-75); PLATELET COUNT 280 X10'3 (140-440); RED BLOOD COUNT 2.91 X10'6 (4.70-6.10); RED CELL DISTRIBUTION WIDTH 14.1 % (11.5-14.5); WHITE BLOOD COUNT 7.6 X10'3 (4.5-11.0)
[2018-04-15 06:37] LABS: ALANINE AMINOTRANSFERASE 14 U/L (12-78); ALBUMIN 1.9 G/DL (3.4-5.0); ALBUMIN/GLOBULIN RATIO 0.5 (1.1-1.5); ALKALINE PHOSPHATASE 174 IU/L (46-116); ANION GAP 9 (8-16); ASPARTATE AMINO TRANSFERASE 41 U/L (10-37); BILIRUBIN,TOTAL 0.6 MG/DL (0.1-1.0); BLOOD UREA NITROGEN 44 MG/DL (7-18); BUN/CREATININE RATIO 20.2 (5.4-32.0); CALCIUM 8.9 MG/DL (8.5-10.1); CHLORIDE 106 MMOL/L (99-107); CREATININE 2.18 MG/DL (0.60-1.10); GLUCOSE 102 MG/DL (70-104); POTASSIUM 4.4 MMOL/L (3.5-5.1); SODIUM 138 MMOL/L (135-145); TOTAL CARBON DIOXIDE 22.6 MMOL/L (24-32); TOTAL PROTEIN 5.8 G/DL (6.4-8.2); eGFR 29 ML/MIN
[2018-04-15] MEDS: morphine 4 MG/ML inj SYRINge IV PRN (07:16)
[2018-04-15] MEDS: lactobacillus rhamnosus 10,000 MMU CELLS/CAPSULE PO SCH ×2 (08:05→20:03)
[2018-04-15] MEDS: amLODIPine 5mg tablet PO SCH (08:05)
[2018-04-15] MEDS: citalopram 20mg tablet PO SCH (08:05)
[2018-04-15] MEDS: QUEtiapine 25mg tablet PO SCH ×2 (08:06→20:03)
[2018-04-15] MEDS: carbidopa/levodopa 10/100mg tab PO SCH ×3 (08:07→23:53)
[2018-04-15] MEDS: lisinopril 20mg tablet PO SCH (08:08)
[2018-04-15] MEDS: heparin, porcine 5000 units/ml vial SQ SCH ×2 (08:08→20:04)
[2018-04-15] MEDS: albuterol 2.5 MG/3 ML nebule NEB PRN (08:27)
[2018-04-15 10:00] VITALS: BP 102/59
[2018-04-15] MEDS ORDERED: VANCOMYCIN LEVEL IV NR (16:30)
[2018-04-15] MEDS: vancomycin/NS 1 GM ADD-VANTAGE 250 ML IV SCH (17:31)
[2018-04-15] MEDS: atorvastatin 10mg tablet PO SCH (20:03)
[2018-04-15 22:00] VITALS: BP 103/37
[2018-04-16 06:00] VITALS: BP 98/38
[2018-04-16] MEDS: lisinopril 20mg tablet PO SCH (09:52)
[2018-04-16] MEDS: lactobacillus rhamnosus 10,000 MMU CELLS/CAPSULE PO SCH ×2 (09:52→20:41)
[2018-04-16] MEDS: carbidopa/levodopa 10/100mg tab PO SCH ×2 (09:52→17:58)
[2018-04-16] MEDS: amLODIPine 5mg tablet PO SCH (09:52)
[2018-04-16] MEDS: QUEtiapine 25mg tablet PO SCH (09:52)
[2018-04-16] MEDS: citalopram 20mg tablet PO SCH (09:52)
[2018-04-16] MEDS: heparin, porcine 5000 units/ml vial SQ SCH ×2 (09:57→20:45)
[2018-04-16 10:00] VITALS: BP 99/53
[2018-04-16] MEDS ORDERED: VANCOMYCIN LEVEL IV ONE (10:31)
[2018-04-16] MEDS: oxyCODONE IR 5mg (immed. release) tablet PO PRN ×2 (12:31→20:58)
[2018-04-16 18:00] VITALS: BP 109/58
[2018-04-16] MEDS: magnesium hydroxide 30ml (MOM) UD suspension PO PRN (20:41)
[2018-04-16] MEDS: atorvastatin 10mg tablet PO SCH (20:41)
[2018-04-16 22:00] VITALS: BP 120/45
[2018-04-17] MEDS: carbidopa/levodopa 10/100mg tab PO SCH ×3 (00:07→18:21)
[2018-04-17] MEDS ORDERED: VANCOMYCIN LEVEL IV ONE (03:00)
[2018-04-17] MEDS: oxyCODONE IR 5mg (immed. release) tablet PO PRN ×2 (04:32→19:31)
[2018-04-17 05:00] VITALS: BP 105/43
[2018-04-17] MEDS ORDERED: vancomycin/NS 1 GM ADD-VANTAGE 250 ML IV PRN (07:45)
[2018-04-17] MEDS: QUEtiapine 25mg tablet PO SCH (08:24)
[2018-04-17] MEDS: lactobacillus rhamnosus 10,000 MMU CELLS/CAPSULE PO SCH ×2 (08:24→19:31)
[2018-04-17] MEDS: citalopram 20mg tablet PO SCH (08:24)
[2018-04-17] MEDS: amLODIPine 5mg tablet PO SCH (08:24)
[2018-04-17] MEDS: lisinopril 20mg tablet PO SCH (08:24)
[2018-04-17] MEDS: heparin, porcine 5000 units/ml vial SQ SCH ×2 (08:30→19:32)
[2018-04-17 10:00] VITALS: BP 99/47
[2018-04-17] MEDS: acetaminophen 325mg tablet PO PRN (10:55)
[2018-04-17 11:00] LABS: BASOPHILS % (AUTO) 0.2 % (0-1); EOSINOPHILS # (AUTO) 0.5 X10'3 (0-0.9); EOSINOPHILS % (AUTO) 4.9 % (0-6); HEMOGLOBIN 10.3 g/dl (14.0-17.9); LYMPHOCYTES # (AUTO) 1.5 X10'3 (1.1-4.8); LYMPHOCYTES % (AUTO) 14.8 % (21-51); MEAN CORPUSCULAR HEMOGLOBIN 31.9 PG (27.0-31.0); MEAN CORPUSCULAR HGB CONC 33.2 % (33.0-36.5); MEAN CORPUSCULAR VOLUME 96.3 FL (78-98); MEAN PLATELET VOLUME 7.7 FL (7.4-10.4); MONOCYTES # (AUTO) 1.1 X10'3 (0-0.9); MONOCYTES % (AUTO) 11.2 % (2-12); NEUTROPHILS # (AUTO) 6.8 X10'3 (1.8-7.7); NEUTROPHILS % (AUTO) 68.9 % (42-75); PLATELET COUNT 363 X10'3 (140-440); RED BLOOD COUNT 3.22 X10'6 (4.70-6.10); RED CELL DISTRIBUTION WIDTH 14.6 % (11.5-14.5); WHITE BLOOD COUNT 9.9 X10'3 (4.5-11.0)
[2018-04-17 11:07] LABS: ALBUMIN 2.2 G/DL (3.4-5.0); ANION GAP 10 (8-16); BLOOD UREA NITROGEN 55 MG/DL (7-18); BUN/CREATININE RATIO 23.9 (5.4-32.0); CALCIUM 9.5 MG/DL (8.5-10.1); CHLORIDE 107 MMOL/L (99-107); GLUCOSE 131 MG/DL (70-104); POTASSIUM 4.6 MMOL/L (3.5-5.1); SODIUM 138 MMOL/L (135-145); TOTAL CARBON DIOXIDE 21.4 MMOL/L (24-32); eGFR 27 ML/MIN
[2018-04-17 18:00] VITALS: BP 111/45
[2018-04-17] MEDS: magnesium hydroxide 30ml (MOM) UD suspension PO PRN (19:31)
[2018-04-17] MEDS: atorvastatin 10mg tablet PO SCH (21:01)
[2018-04-17 22:00] VITALS: BP 95/50
[2018-04-18] MEDS: carbidopa/levodopa 10/100mg tab PO SCH ×2 (00:02→09:50)
[2018-04-18] MEDS ORDERED: VANCOMYCIN LEVEL IV SCH (03:00)
[2018-04-18] MEDS: oxyCODONE IR 5mg (immed. release) tablet PO PRN ×2 (04:34→09:51)
[2018-04-18 06:00] VITALS: BP 125/49
[2018-04-18] MEDS: citalopram 20mg tablet PO SCH (09:49)
[2018-04-18] MEDS: lactobacillus rhamnosus 10,000 MMU CELLS/CAPSULE PO SCH (09:49)
[2018-04-18] MEDS: QUEtiapine 25mg tablet PO SCH (09:50)
[2018-04-18] MEDS: amLODIPine 5mg tablet PO SCH (09:50)
[2018-04-18] MEDS: heparin, porcine 5000 units/ml vial SQ SCH (09:52)
== END 2018-04-18 13:30 | DRG 485 ==
LOC: ER 13:05 → ED HOLD 19:24 → ORTHO 4S 20:35
PROVIDERS: ADMIT Internal Medicine; ATTEND Internal Medicine
PROC: 0S9C3ZX Drainage of Right Knee Joint, Percutaneous Approach, Diagnostic (ICD-10-PCS; 2018-04-07)
PROC: 02HV33Z Insertion of Infusion Device into Superior Vena Cava, Percutaneous Approach (ICD-10-PCS; 2018-04-07)
PROC: B548ZZA Ultrasonography of Superior Vena Cava, Guidance (ICD-10-PCS; 2018-04-07)
PROC: 0SUV09Z Supplement Right Knee Joint, Tibial Surface with Liner, Open Approach (ICD-10-PCS; 2018-04-10)
PROC: 0SBC0ZZ Excision of Right Knee Joint, Open Approach (ICD-10-PCS; 2018-04-10)
PROC: 3E0U029 Introduction of Other Anti-infective into Joints, Open Approach (ICD-10-PCS; 2018-04-10)
PROC: 0SPC09Z Removal of Liner from Right Knee Joint, Open Approach (ICD-10-PCS; principal; 2018-04-10 12:35)
PROC: 02HV33Z Insertion of Infusion Device into Superior Vena Cava, Percutaneous Approach (ICD-10-PCS; 2018-04-14)
PROC: B548ZZA Ultrasonography of Superior Vena Cava, Guidance (ICD-10-PCS; 2018-04-14)
DX: T84.53XA Infection and inflammatory reaction due to internal right knee prosthesis, initial encounter (principal); G93.40 Encephalopathy, unspecified; A41.9 Sepsis, unspecified organism; N17.9 Acute kidney failure, unspecified; M00.9 Pyogenic arthritis, unspecified; D64.9 Anemia, unspecified; F03.90 Unspecified dementia, unspecified severity, without behavioral disturbance, psychotic disturbance, mood disturbance, and anxiety; E78.00 Pure hypercholesterolemia, unspecified; I12.9 Hypertensive chronic kidney disease with stage 1 through stage 4 chronic kidney disease, or unspecified chronic kidney disease; E78.5 Hyperlipidemia, unspecified; B96.89 Other specified bacterial agents as the cause of diseases classified elsewhere; E86.0 Dehydration; I48.91 Unspecified atrial fibrillation; M25.461 Effusion, right knee; I87.2 Venous insufficiency (chronic) (peripheral); N18.9 Chronic kidney disease, unspecified; Y83.1 Surgical operation with implant of artificial internal device as the cause of abnormal reaction of the patient, or of later complication, without mention of misadventure at the time of the procedure; T36.8X5A Adverse effect of other systemic antibiotics, initial encounter; Z66 Do not resuscitate; Z88.8 Allergy status to other drugs, medicaments and biological substances; Z79.899 Other long term (current) drug therapy; Z79.82 Long term (current) use of aspirin; Z86.73 Personal history of transient ischemic attack (TIA), and cerebral infarction without residual deficits
CPT/HCPCS: 20610; 36415; 36556; 36569; 71045; 73564; 76937; 80048; 80053; 80162; 80202; 82945; 83605; 83735; 83880; 84145; 84157; 85025; 85651; 86140; 87040; 87070; 87075; 87077; 89051; 89060; 94640; 94760; 96365; 96366; 97110; 97161; 97530; 97535; 99285; A4315; A4353; A4615; A4649; A6209; A6212; A6213; A6223; A6449; A6455; A7000; C1713; C1751; C1758; C1776; J0690; J0696; J1644; J1940; J2060; J2250; J2270; J2370; J2405; J3010; J3260; J3370; J3490; J7030; J7120; P9045